=== PATIENT | female | born 1990 | race Caucasian/White ===

== ENCOUNTER 2016-08-17 11:26 | Emergency (ER) | payer SELFPAY ==
[~2016-08-17] VITALS: Ht 157.5 cm; Wt 93.0 kg
[2016-08-17 11:32] VITALS: BP_SYST 138
--- NOTE | 2016-08-17 13:00 | NUR ---
Pt left without notifyimng staff.
== END 2016-08-17 13:00 | disposition left against medical advice (07) ==
LOC: SED 11:26
DX: R10.9 Unspecified abdominal pain (principal); R11.10 Vomiting, unspecified; Z53.21 Procedure and treatment not carried out due to patient leaving prior to being seen by health care provider